=== PATIENT | female | born 1930 | race Caucasian/White ===

== ENCOUNTER 2016-12-21 21:35 | Emergency (ER) | END 2016-12-22 02:36 | disposition home or self-care (01) | DX: G50.0 Trigeminal neuralgia (principal); B34.9 Viral infection, unspecified; I10 Essential (primary) hypertension; I25.10 Atherosclerotic heart disease of native coronary artery without angina pectoris; J44.9 Chronic obstructive pulmonary disease, unspecified; Z95.5 Presence of coronary angioplasty implant and graft ==

== ENCOUNTER 2018-06-10 21:47 | Inpatient (IN) | END 2018-06-13 12:22 | disposition home health service (06) | DRG 641 ==